=== PATIENT | female | born 1960 | race Caucasian/White ===

== ENCOUNTER 2019-04-06 14:11 | Day surgery (SDC) | payer OTHER ==
[2019-04-06] VITALS (19 sets, daily range): BP systolic 114–140; BP diastolic 59–80; PULSE 78–94; RESP 14–21; Ht 157.5 cm; Wt 78.2 kg
[~2019-04-06] VITALS: Ht 157.5 cm; Wt 78.2 kg
[2019-04-06] MEDS ORDERED: [UNRECOGNIZED DRUG - CODE] PO (15:30)
[2019-04-06] MEDS ORDERED: LISI-471 PO (15:30)
[2019-04-06] MEDS ORDERED: OMEP40CA6 PO (15:30)
[2019-04-06] MEDS ORDERED: GABA300C16 PO (15:30)
[2019-04-06] MEDS ORDERED: GABA-526 PO (15:30)
--- NOTE | 2019-04-06 16:34 | HPN ---
Date/Time of Note Date/Time of Note DATE: 04/06/19 TIME: 16:34 Interval H&P Admission Note Pt. seen H&P reviewed: No system changes LIA ERICKSON Apr 06, 2019 16:34
--- NOTE | 2019-04-06 17:20 | PREAC ---
Date/Time of Note Date/Time of Note DATE: 04/06/19 TIME: 17:19 Anesthesia Eval and Record Evaluation Time Pre-Procedure Interview DATE: 04/06/19 TIME: 17:19 Age 59 Sex female NPO: 8 hrs Preoperative diagnosis Left carpal tunnel syndrome, left wrist DEQuervain's stenosing tenosynovitis, left wrist ganglion cyst Planned procedure Left carpal tunnel release, left wrist first dorsal compartment tendon sheath incision, excision of left wrist volar ganglion cyst, possible tenosynovectomy of left wrist first dorsal compartment Past Medical History Past Medical History: Includes Cardio: HTN, Dyslipidemia GI: Obesity Surgery & Anesthesia Issues No known issue Meds Anticoagulation: No Beta Federico within 24 hr: No Reason Beta Federico not given: Pt. not on B-Federico Reported Medications Omeprazole* (Omeprazole*) 40 Mg Capsule.dr, 40 MG PO DAILY, #30 CAP 04/06/19 Lisinopril* (Lisinopril*) 20 Mg Tablet, 20 MG PO DAILY, #30 TAB 04/06/19 Gabapentin* (Gabapentin*) 600 Mg Tablet, 600 MG PO TID, #90 TAB 04/06/19 Oxycodone HCl/Acetaminophen (Endocet 5-325 Tablet) 1 Each Tablet, 1 EACH PO Q4 PRN for PAIN, TAB 04/06/19 Gabapentin* (Gabapentin*) 300 Mg Capsule, 600 MG PO TID, #180 CAP 04/06/19 Meds reviewed: Yes Allergies Coded Allergies: No Known Allergies (Verified Allergy, Unknown, 04/06/19) Allergies Reviewed: Yes Labs/Studies Labs Reviewed: Reviewed by anesthesiologist test: N/A Pre-procedure Exam Last vitals Vital Signs Date Temp Pulse Resp B/P (MAP) Pulse Ox O2 O2 Flow FiO2 Time Delivery Rate 04/06/19 98.5 85 16 126/71 98 Room Air 15:22 (89) Airway: Adequate mouth opening Mallampati: Mallampati II Teeth: Abnormal (Full denture) Lung: Normal Heart: Normal ASA Physical Status ASA physical status: 2 Emergency: None Planned Anesthetic General/MAC: LMA Planned Pain Management Parenteral pain med Pre-operative Attestations Prior to commencing anesthesia and surgery, the patient was re-evaluated, there was verification of: *The patient's identity *The results of appropriate recent lab work and preoperative vital signs *The above evaluation not changing prior to induction *Anesthetic plan, risk benefits, alternative and complications discussed with patient/family; questions answered; patient/family understands, accepts and wishes to proceed. TIFFANIE PARHAM MD Apr 06, 2019 17:20
[2019-04-06] MEDS ORDERED: LIDOCAINE 2% (SDV) 5 ML INJ ONE (17:35)
[2019-04-06] MEDS ORDERED: CEFAZOLIN 1 GM INJ ONE (17:35)
[2019-04-06] MEDS ORDERED: PROPOFOL 20 ML ONE (17:35)
[2019-04-06] MEDS ORDERED: BUPIVACAINE 0.5% 30 ML VIAL INJ ONE (18:20)
[2019-04-06] MEDS ORDERED: ONDANSETRON 4 MG INJ ONE (18:25)
[2019-04-06] MEDS ORDERED: METOCLOPRAMIDE 10 MG INJ ONE (18:25)
--- NOTE | 2019-04-06 18:40 | OPPN ---
Date/Time of Note Date/Time of Note DATE: 04/06/19 TIME: 18:39 Operative Report Preoperative Diagnosis left carpal tunnel syndrome left wrist volar ganglion cyst left dequervain's Postoperative Diagnosis left carpal tunnel syndrome left wrist volar ganglion cyst left dequervain's Operation/Procedure Performed left carpal tunnel release excision left wrist volar ganglion cyst left dequervain's release 1st DC tenosynovectomy Surgeon see signature line undertaker assistant none Anesthesia: general Estimated blood loss: 0 - 10 ml's Transfusion Required none Specimen none Grafts/Implants none Complications none LIA ERICKSON Apr 06, 2019 18:40
[2019-04-06] MEDS ORDERED: FENTAnyl 50 MCG/ML VIAL IV PRN ×3 (19:00)
[2019-04-06] MEDS ORDERED: MEPERIDINE 25 MG INJ IV PRN (19:00)
[2019-04-06] MEDS ORDERED: ONDANSETRON 4 MG INJ IV PRN (19:00)
[2019-04-06] MEDS ORDERED: LABETALOL HCL 20MG INJ IV PRN (19:00)
[2019-04-06] MEDS ORDERED: EPHEDrine 25 MG/5 ML SYG IV PRN (19:00)
[2019-04-06] MEDS ORDERED: MIDAZOLAM 1 MG/ML 2 ML INJ IV PRN (19:00)
[2019-04-06] MEDS ORDERED: DIPHENHYDRAMINE 50 MG INJ IV PRN (19:00)
[2019-04-06] MEDS ORDERED: OXYCODONE/ACETAMINOPHEN (5/325) TAB PO PRN ×2 (19:00)
[2019-04-06] MEDS ORDERED: METOCLOPRAMIDE 10 MG INJ IV PRN (19:00)
[2019-04-06] MEDS ORDERED: hydrALAzine 20 MG INJ IV PRN (19:00)
--- NOTE | 2019-04-06 19:39 | OPR ---
DATE OF OPERATION: 04/06/2019 SURGEON: Bryon Melissa MD. ANESTHESIA: General plus local. PREOPERATIVE DIAGNOSES: 1. Left carpal tunnel syndrome. 2. Left wrist de Quervain's tenosynovitis. 3. Left wrist volar ganglion. POSTOPERATIVE DIAGNOSES: 1. Left carpal tunnel syndrome. 2. Left wrist de Quervain's tenosynovitis. 3. Left wrist volar ganglion. PROCEDURE: 1. Left carpal tunnel release, open. 2. Left wrist first dorsal compartment tendon sheath incision. 3. Left wrist first dorsal compartment tenosynovectomy. 4. Excision of left wrist volar ganglion. OPERATIVE FINDINGS: Compression of the median nerve at the carpal tunnel with volar ganglion cyst an d tenosynovitis of the 1st wrist dorsal compartment. INDICATION FOR PROCEDURE: A 59-year-old female with longstanding left wrist and hand pain and failed conservative measures, elected to proceed with surgical intervention, understanding risks and benefi ts. DESCRIPTION OF PROCEDURE: The patient was seen in the preoperative area and all further questions we re answered. Again, she gave informed consent, understanding the risks and benefits. She was taken to operative suite and placed in supine position. She was placed under general anesthesia and Ancef 2 grams IV given. Tourniquet placed on left upper extremity and left upper extremity was prepped wit h ChloraPrep stick and draped in the usual sterile fashion. Esmarch bandage used to exsanguinate the extremity and tourniquet inflated to 250 mmHg. Attention was first turned to the carpal tunnel and a 2 cm incision at the base of the palm was utilized with sharp dissection carried down through skin and subcutaneous tissue. The palmar aponeurosis was incised along its ulnar border and retractors we re deepened. The transverse carpal ligament incised along its ulnar border approximately 3 mm radial to the hook of the hamate. Retraction was placed proximally and distally, and the proximal and dist al extents of the transverse carpal ligament were divided under direct visualization. Wound was copi ously irrigated. Skin closed with 5-0 nylon. Attention was turned to the volar wrist ganglion in a modified volar Nolan approach to the distal radius was utilized with sharp dissection carried down th rough skin and subcutaneous tissue. The FCR sheath was incised and the FCR tendon retracted ulnarly. The FCR subsheath incised. The FPL tendon retracted ulnarly. The pronator quadratus was visualize d as was the volar wrist capsule. There was a volar wrist ganglion, which was arising from the radio carpal joint and the cyst was excised down to the joint capsule. Wound was copiously irrigated. Ski n closed with 5-0 nylon. Attention was turned to the first dorsal compartment and a separate oblique incision along the course of the first dorsal compartment was utilized with sharp dissection carried down through skin and subcutaneous tissue. The superficial radial nerve was protected and the first dorsal compartment was visualized. There was a separate sheath for the EPB tendon and the APL tendo ns. Both of these sheaths were incised. The tendons were decompressed. There was tenosynovitis wit hin the first wrist dorsal compartment and a tenosynovectomy was performed using tenotomy scissors an d Adson forceps. The inflamed tenosynovium was excised and the tendons glided nicely. Wound was photocopy operator iously irrigated. Skin closed with 5-0 nylon. Xeroform was placed over the wounds followed by steri le gauze, Webril, and a short arm thumb spica splint with the wrist in gentle extension. Tourniquet deflated after 21 minutes. The patient was awakened by anesthesia. She was taken to the postoperati ve suite in stable condition, tolerated procedure well without complication. SPECIMENS: None. ESTIMATED BLOOD LOSS: 5 mL. COUNTS: Sponge, instrument and needle counts correct. TOURNIQUET TIME: 20 minutes. CONDITION ON DISCHARGE: Stable. The patient was given revealed nonrefillable 5-day prescription for pain medication for surgery today . Dictated By: BRYON TATE/NEIDA Conf#: [id number] DID#: [id number]
--- NOTE | 2019-04-07 08:44 | PAC ---
Date/Time of Note Date/Time of Note DATE: 04/07/19 TIME: 08:44 Post-Anesthesia Notes Post-Anesthesia Note Last documented vital signs Vital Signs Date Temp Pulse Resp B/P (MAP) Pulse Ox O2 O2 Flow FiO2 Time Delivery Rate 04/06/19 98.3 93 17 126/68 98 Room Air 20:43 (87) 04/06/19 2.0 18:54 Activity: WNL Respiratory function: WNL Cardiovascular function: WNL Mental status: Baseline Pain reasonably controlled: Yes Hydration appropriate: Yes Nausea/Vomiting absent: Yes TIFFANIE PARHAM MD Apr 07, 2019 08:44
== END 2019-04-06 20:43 | disposition home or self-care (01) ==
LOC: SDS 14:11
PROVIDERS: ATTEND Orthopaedic Surgery Hand Surgery
DX: G56.02 Carpal tunnel syndrome, left upper limb (principal); M65.4 Radial styloid tenosynovitis [de Quervain]; M67.432 Ganglion, left wrist; I10 Essential (primary) hypertension; E78.5 Hyperlipidemia, unspecified; E66.9 Obesity, unspecified; Z68.31 Body mass index [BMI] 31.0-31.9, adult
CPT/HCPCS: 25000; 25111; 71045; J0690; J2405; J2765; J3010; Z7512; Z7610